=== PATIENT | female | born 1995 | race Caucasian/White ===

== ENCOUNTER 2017-09-15 08:23 | Emergency (ER) | payer MEDICAID ==
[~2017-09-15] VITALS: Ht 149.9 cm; Wt 42.3 kg
[~2017-09-15 08:23] MED LIST: DIAZ5 PO; LURA40 PO; METH36 PO; WELLTAB39 PO
[2017-09-15 08:25] VITALS: BP 111/75; PULSE 94; RESP 16; TEMP 98.2; O2SAT 100
[2017-09-15] MEDS ORDERED: BUTA1CAP PO (08:41)
--- NOTE | 2017-09-15 08:49 | PD ---
HPI Chief Complaint: Pain: Acute or Chronic Time Seen by Provider: 08:30 Travel History International Travel<30 days: No Contact w/Intl Traveler<30days: No Traveled to known affect area: No History of Present Illness HPI 22-year-old female presents with general tiredness and diffuse bodyaches over the past week. Her guardian who has custody of her states she has been struggling with this intermittently over the past couple years. She had blood work on the and was told that her white count was only 0.1 and they are working on getting her a referral that she wanted to come here to get further care. The patient denies any fever, nasal congestion or other concurrent complaints other than bilateral hand pain for which she wears gloves for. She denies specific modifying factors other than the cold. Her mother answers most questions for her and this limits history from the patient. PFSH Past Medical History Hx Anticoagulant Therapy: No ADHD: Yes Weight (Kg): 3 Depression: Yes Cancer: No Cardiovascular Problems: No Developmental Delay: Yes (autisim, psychosis,migranes) Diabetes: No Diminished Hearing: No Headaches: Yes Psychiatric: Yes (ADHD AUTISM PSYCHOSIS) Immunizations Current: Yes Migraines: Yes Seizures: No Tetanus Vaccination: Unknown Influenza Vaccination: No ?: Not LMP: 09/15/17 Past Surgical History Surgical History: No Previous Surgery Social History Alcohol Use: No Tobacco Use: No Substance Use: No Allergies-Medications (Allergen,Severity, Reaction): Coded Allergies: No Known Allergies (Unverified Adverse Reaction, Unknown, 09/15/17) Reported Meds & Prescriptions Reported Meds & Active Scripts Active Latuda (Lurasidone) 40 Mg Tab 40 Mg PO DAILY Wellbutrin Xl 24 HR (Bupropion HCl) 300 Mg Tab 300 Mg PO DAILY Concerta (Methylphenidate HCl) 36 Mg Joe 36 Mg PO DAILY Concerta (Methylphenidate HCl) 36 Mg Joe 36 Mg PO DAILY Valium (Diazepam) 5 Mg Tab 5 Mg PO DAILY PRN Reported Fioricet (Vlrlnshoup-Twqqzwnfnwcwz-Dvgdsgdu) 50-300-40 Mg Cap Unknown Dose PO Q4H PRN Review of Systems Except as stated in HPI: all other systems reviewed are Neg Physical Exam Narrative General: No apparent distress, well appearing ENT: Posterior oropharyngx clear without exudate or erythema, external auditory canals are normal. Bilateral TM clear Neck: Neck is supple, no meningeal signs, trachea is midline Cardiovascular: Regular rate and rhythm Lungs: No increased respiratory effort noted, CTA bilaterally Abdomen: Soft, NT, ND, no rebound or guarding Extremities: No edema, no significant point tenderness over main joints, neurovascularly intact, no lacerations over, compartments soft. Neuro: Awake, motor and sensation grossly intact, normal speech Data Data Last Documented VS Vital Signs Date Time Temp Pulse Resp B/P (MAP) Pulse Ox O2 Delivery O2 Flow Rate FiO2 09/15/17 08:25 98.2 94 16 111/75 (87) 100 Orders Orders Complete Blood Count With Diff (09/15/17 08:38) Basic Metabolic Panel (Bmp) (09/15/17 08:38) Creatine Kinase (Cpk) (09/15/17 08:38) Iv Access Insert/Monitor (09/15/17 08:38) Ed Discharge Order (09/15/17 09:51) Labs Laboratory Tests Test 09/15/17 08:50 White Blood Count 4.8 TH/MM3 Red Blood Count 3.99 MIL/MM3 Hemoglobin 12.1 GM/DL Hematocrit 36.3 % Mean Corpuscular Volume 90.8 FL Mean Corpuscular Hemoglobin 30.2 PG Mean Corpuscular Hemoglobin Concent 33.2 % Red Cell Distribution Width 11.4 % Platelet Count 236 TH/MM3 Mean Platelet Volume 7.7 FL Neutrophils (%) (Auto) 57.3 % Lymphocytes (%) (Auto) 25.8 % Monocytes (%) (Auto) 9.9 % Eosinophils (%) (Auto) 3.6 % Basophils (%) (Auto) 3.4 % Neutrophils # (Auto) 2.6 TH/MM3 Lymphocytes # (Auto) 1.2 TH/MM3 Monocytes # (Auto) 0.5 TH/MM3 Eosinophils # (Auto) 0.2 TH/MM3 Basophils # (Auto) 0.2 TH/MM3 CBC Comment DIFF FINAL Differential Comment Blood Urea Nitrogen 13 MG/DL Creatinine 0.87 MG/DL Random Glucose 86 MG/DL Calcium Level 8.5 MG/DL Sodium Level 139 MEQ/L Potassium Level 4.7 MEQ/L Chloride Level 106 MEQ/L Carbon Dioxide Level 26.8 MEQ/L Anion Gap 6 MEQ/L Estimat Glomerular Filtration Rate 82 ML/MIN Total Creatine Kinase 89 U/L MDM Medical Decision Making Medical Screen Exam Complete: Yes Emergency Medical Condition: Yes Medical Record Reviewed: Yes (past history confirm, white count of 0.1 on the 11th without other results tested) Interpretation(s) CBC & BMP Diagram 09/15/17 08:50 Calcium Level 8.5 Differential Diagnosis lab error, anemia, immune deficiency Narrative Course Will recheck blood work to confirm leukopenia and reevaluate labs within normal limits today, advised primary follow up, given return instructions Diagnosis Primary Impression: Fatigue Qualified Codes: R53.83 - Other fatigue Additional Impression: Body aches Patient Instructions: General Instructions Additional Instructions: return as needed, follow with primary Med/Other Pt SpecificInfo: No Change to Meds Disposition: 01 DISCHARGE HOME Condition: Stable Katlyn Trent MD Sep 15, 2017 08:49
[2017-09-15 08:58] LABS: AUTOMATED NEUTROPHIL # 2.6 TH/MM3 (1.8-7.7); BASOPHIL # 0.2 TH/MM3 (0-0.2); BASOPHIL % 3.4 % (0.0-2.0); EOSINOPHIL # 0.2 TH/MM3 (0-0.4); EOSINOPHIL % 3.6 % (0.0-4.0); HEMATOCRIT 36.3 % (35.0-46.0); HEMOGLOBIN 12.1 GM/DL (11.6-15.3); LYMPH % 25.8 % (9.0-44.0); LYMPHOCYTE # 1.2 TH/MM3 (1.0-4.8); MEAN CELL VOLUME 90.8 FL (80.0-100.0); MEAN CORPUSCULAR HEMOGLOBIN 30.2 PG (27.0-34.0); MEAN CORPUSCULAR HGB CONC 33.2 % (32.0-36.0); MEAN PLATELET VOLUME 7.7 FL (7.0-11.0); MONO % 9.9 % (0.0-8.0); MONOCYTE # 0.5 TH/MM3 (0-0.9); NEUT % 57.3 % (16.0-70.0); PLATELET COUNT 236 TH/MM3 (150-450); RED BLOOD COUNT 3.99 MIL/MM3 (4.00-5.30); RED CELL DISTRIBUTION WIDTH 11.4 % (11.6-17.2); WHITE BLOOD COUNT 4.8 TH/MM3 (4.0-11.0)
[2017-09-15 09:08] LABS: CALCIUM 8.5 MG/DL (8.5-10.1)
[2017-09-15 09:09] LABS: BICARBONATE 26.8 MEQ/L (21.0-32.0)
[2017-09-15 09:12] LABS: CREATININE 0.87 MG/DL (0.50-1.00)
[2017-09-15 10:18] VITALS: BP 109/76
== END 2017-09-15 10:20 | disposition home or self-care (01) ==
LOC: PHED 08:23
DX: R53.83 Other fatigue (principal); M79.1 Myalgia; F32.9 Major depressive disorder, single episode, unspecified; F90.9 Attention-deficit hyperactivity disorder, unspecified type; F84.0 Autistic disorder
CPT/HCPCS: 80048; 82550; 85025; 99283

== ENCOUNTER 2017-10-01 12:59 | Emergency (ER) | payer MEDICAID ==
[~2017-10-01] VITALS: Ht 154.9 cm; Wt 41.8 kg
[~2017-10-01 12:59] MED LIST changes: +BUTA1CAP PO
[2017-10-01 13:03] VITALS: BP 134/78; PULSE 138; RESP 18; TEMP 97.7; O2SAT 97
[2017-10-01] MEDS ORDERED: PERC5TAB12 PO (14:13)
--- NOTE | 2017-10-01 14:13 | PD ---
HPI Chief Complaint: Lump, Cyst, Hernia Time Seen by Provider: 14:00 Travel History International Travel<30 days: No Contact w/Intl Traveler<30days: No Traveled to known affect area: No History of Present Illness HPI 22-year-old female patient with history of autism, presents to the ER today because of 2 weeks history of a cystic lesion on her tailbone area which has been enlarging and mom states that it started to drain yellowish fluid and some blood over the last few days. Mom is concerned because there is increased drainage to the area and the patient has been complaining more discomfort. Patient's mother had taken her to see primary care physician who saw her last week, has scheduled her for general surgery consult next week. There has not been any fevers, abdominal pains, or any other symptoms. Modifying Factors: None Associated Signs & Symptoms: Tailbone area discomfort, cystic lesion, draining yellowish fluid Risk Factors: None PFSH Past Medical History Hx Anticoagulant Therapy: No ADHD: Yes Depression: Yes Cancer: No Cardiovascular Problems: No Developmental Delay: Yes (autisim, psychosis,migranes) Diabetes: No Diminished Hearing: No Headaches: Yes Psychiatric: Yes (ADHD AUTISM PSYCHOSIS) Immunizations Current: Yes Migraines: Yes Seizures: No ?: Not Social History Alcohol Use: No Tobacco Use: No Substance Use: No Allergies-Medications (Allergen,Severity, Reaction): Coded Allergies: No Known Allergies (Unverified Adverse Reaction, Unknown, 10/01/17) Reported Meds & Prescriptions Reported Meds & Active Scripts Active Latuda (Lurasidone) 40 Mg Tab 40 Mg PO DAILY Wellbutrin Xl 24 HR (Bupropion HCl) 300 Mg Tab 300 Mg PO DAILY Concerta (Methylphenidate HCl) 36 Mg Joe 36 Mg PO DAILY Concerta (Methylphenidate HCl) 36 Mg Joe 36 Mg PO DAILY Valium (Diazepam) 5 Mg Tab 5 Mg PO DAILY PRN Reported Fioricet (Ksgmpeoyry-Istnihymbmigr-Vphdhpgd) 50-300-40 Mg Cap Unknown Dose PO Q4H PRN Review of Systems Except as stated in HPI: all other systems reviewed are Neg Physical Exam Narrative GENERAL: Small young autistic female patient who is currently not in acute distress. Awake and oriented 3. Answering some questions. She appears fairly comfortable, has her therapy dog with her. SKIN: Focused skin assessment warm/dry. There is a 2 cm oval area that is mildly indurated and raised on the tailbone, no surrounding erythema or fluctuance. There is an opening from this area that is draining clear yellowish fluid. No significant bleeding at this time. This does not appears to extend towards the anal area. Area is only mildly tender to palpation. HEAD: Atraumatic. Normocephalic. EYES: Pupils equal and round. No scleral icterus. No injection or drainage. ENT: No nasal bleeding or discharge. Mucous membranes pink and moist. NECK: Trachea midline. No JVD. CARDIOVASCULAR: Regular rate and rhythm. No murmur appreciated. RESPIRATORY: No accessory muscle use. Clear to auscultation. Breath sounds equal bilaterally. GASTROINTESTINAL: Abdomen soft, non-tender, nondistended. Hepatic and splenic margins not palpable. MUSCULOSKELETAL: No obvious deformities. No clubbing. No cyanosis. No edema. NEUROLOGICAL: Awake and alert. No obvious cranial nerve deficits. Motor grossly within normal limits. Normal speech. PSYCHIATRIC: Appropriate mood and affect; insight and judgment normal. Data Data Last Documented VS Vital Signs Date Time Temp Pulse Resp B/P (MAP) Pulse Ox O2 Delivery O2 Flow Rate FiO2 10/01/17 13:03 97.7 138 18 134/78 (96) 97 MDM Medical Decision Making Medical Screen Exam Complete: Yes Emergency Medical Condition: Yes Medical Record Reviewed: Yes Differential Diagnosis Cystic lesion versus abscess versus pilonidal cyst versus fistula Narrative Course On exam, this does not have the appearance of an abscess. I suspect that she may have a pilonidal cyst versus fistula, this does not appear infected. Case was discussed with Dr. Guerra who agrees to see her tomorrow in his office. At this point, my plan would be to release family with follow-up to him tomorrow. Return for any worsening in pain or new symptoms as needed. The plan has been discussed with mom and she states understanding. Diagnosis Primary Impression: Pilonidal cyst without abscess Referrals: Dino Guerra MD 1 day Follow-up in his office at 10 AM, call for confirmation Med/Other Pt SpecificInfo: Prescription(s) given Scripts Oxycodone-Acetaminophen (Percocet) 5-325 mg Tab 1 TAB PO Q6H Y for PAIN, #7 TAB 0 Refills Prov: Brenna Patino MD 10/01/17 Disposition: 01 DISCHARGE HOME Condition: Stable Brenna Patino MD Oct 01, 2017 14:13
== END 2017-10-01 15:15 | disposition home or self-care (01) ==
LOC: PHED 12:59
DX: L05.91 Pilonidal cyst without abscess (principal); F90.9 Attention-deficit hyperactivity disorder, unspecified type; F32.9 Major depressive disorder, single episode, unspecified; F84.0 Autistic disorder; F29 Unspecified psychosis not due to a substance or known physiological condition
CPT/HCPCS: 99283